=== PATIENT | male | born 1950 | race Caucasian/White ===

== ENCOUNTER 2020-10-09 12:35 | Emergency (ER) | payer OTHER, BC ==
[2020-10-09] MEDS ORDERED: Diphtheria,Pertussis(Acell),Tetanus Vaccine 0.5 ML Syringe IM ONE (13:07)
[2020-10-09] MEDS ORDERED: Ketorolac 60 MG/2 ML SDV IM ONE (13:07)
--- NOTE | 2020-10-09 13:12 | EDM.PDOC ---
ED HPI GENERAL MEDICAL PROBLEM - General Chief Complaint: Upper Extremity Injury/Pain Stated Complaint: LEFT HAND PAIN Time Seen by Provider: 10/09/20 13:03 Source of Information: Reports: Patient, RN Notes Reviewed History Limitations: Reports: No Limitations - History of Present Illness INITIAL COMMENTS - FREE TEXT/NARRATIVE: 69-year-old gentleman presents emergency department a complaint of redness pain and swelling in his left hand he cut himself with some flashing a couple of days ago now he has noticed some redness increased swelling in his thumb difficult for him to move very tender it is warm to the touch she is not have any red streaks going up his arm he has not had any fevers Left Hand Pain Score (Numeric/FACES): 8 - Related Data Allergies Allergy/AdvReac Type Severity Reaction Status Date / Time No Known Allergies Allergy Verified 10/09/20 12:51 Home Meds: Home Meds Sulfamethoxazole/Trimethoprim [Bactrim Ds Tablet] 1 each PO BID #14 tablet 10/09/20 [Rx] Past Medical History Musculoskeletal History: Reports: Fracture Other Musculoskeletal History: r hand Neurological History: Reports: Concussion - Infectious Disease History Infectious Disease History: Reports: Chicken Pox, Measles, Mumps - Past Surgical History HEENT Surgical History: Reports: LASIK, Tonsillectomy Social & Family History - Tobacco Use Tobacco Use Status *Q: Never Tobacco User Second Hand Smoke Exposure: No - Caffeine Use Caffeine Use: Reports: Coffee, Tea - Recreational Drug Use Recreational Drug Use: No Review of Systems - Review of Systems Review Of Systems: See Below Constitutional: Denies: Fever Respiratory: Reports: No Symptoms Cardiovascular: Reports: No Symptoms GI/Abdominal: Reports: No Symptoms Skin: Reports: Rash, Erythema, Wound ED EXAM, GENERAL - Physical Exam Exam: See Below Free Text/Narrative:: Examination of the right hand I do appreciate some erythema predominantly over the thumb and the thenar eminence it is red in that area as well as very tender to the touch difficult for him to move the thumb without tenderness there is some edema appreciated in digits 2 and 3 as well full range of motion of the wrist are not appreciate any red streaks up the arm radial pulses +2 sensation is intact Exam Limited By: No Limitations General Appearance: Alert, WD/WN, No Apparent Distress Course - Vital Signs Last Recorded V/S: Last Vital Signs Temp 99.4 F 10/09/20 12:48 Pulse 100 10/09/20 12:48 Resp 16 10/09/20 12:48 BP 160/88 H 10/09/20 12:48 Pulse Ox 94 L 10/09/20 12:48 - Orders/Labs/Meds Orders: Active Orders 24 hr Category Date Time Status Vaccines to be Administered [RC] PER UNIT ROUTINE Care 10/09/20 13:08 Ordered Meds: Medications Discontinued Medications Generic Name Dose Route Start Last Admin Trade Name Jose PRN Reason Stop Dose Admin Diphtheria/Tetanus/Acell Pertussis 0.5 ml 10/09/20 13:07 Boostrix IM 10/09/20 13:08 .ONCE ONE Ketorolac Tromethamine 60 mg 10/09/20 13:07 Toradol IM 10/09/20 13:08 ONETIME ONE Departure - Departure Time of Disposition: 13:11 Disposition: Home, Self-Care 01 Condition: Fair Clinical Impression: Cellulitis of left hand - Discharge Information Prescriptions: Sulfamethoxazole/Trimethoprim [Bactrim Ds Tablet] 1 each PO BID #14 tablet Instructions: Cellulitis, Adult Referrals: PCP,None [Primary Care Provider] - Additional Instructions: Take full course of antibiotics use Tylenol or Motrin as needed for pain control, continue icing hand to reduce swelling, please followup with your primary care provider in 3-5 days if not better, please call return to the emergency department with worsening of symptoms. Sepsis Event Note (ED) - Evaluation Sepsis Screening Result: No Definite Risk - Focused Exam Vital Signs: Vital Signs Temp Pulse Resp BP Pulse Ox 10/09/20 12:48 99.4 F 100 16 160/88 H 94 L - My Orders Last 24 Hours: My Active Orders 10/09/20 13:08 Vaccines to be Administered [RC] PER UNIT ROUTINE - Assessment/Plan Last 24 Hours: My Active Orders 10/09/20 13:08 Vaccines to be Administered [RC] PER UNIT ROUTINE Plan: Assessment Acuity = acute Site and laterality = cellulitis right hand Etiology = probable bacterial cause Manifestations = none Location of injury = Home Lab values = none Plan Elected to treat empirically Bactrim DS 1 tab p.o. twice daily x7 days Toradol provided for pain control tetanus was updated today This note was dictated using [employer] voice recognition software please call with any questions on syntax or grammar.
== END 2020-10-09 13:26 | disposition home or self-care (01) ==
LOC: JP.ED 12:35
DX: L03.114 Cellulitis of left upper limb (principal); Z23 Encounter for immunization
CPT/HCPCS: 90471; 90715; 96372; 99283; J1885